=== PATIENT | male | born 1965 | race Caucasian/White ===

== ENCOUNTER 2024-08-11 06:47 | Outpatient (CLI) | payer MEDICAID ==
[~2024-08-11 06:47] MED LIST: GADOTERATE MEGLUMINE 7.5 MMOL/15 ML VIAL IV ONE; LIDOcaine 1% 30ml preserv. free vial ONE; LIDOcaine 1%/PF 5ML 10 MG/ML VIAL ONE; iohexol 300 MG/1 ML 50ml polymer ONE
== END 2024-08-11 23:59 | disposition home or self-care (01) ==
LOC: RAD 06:47
PROVIDERS: ATTEND Physician Assistant
DX: S63.8X2A Sprain of other part of left wrist and hand, initial encounter (principal); M25.532 Pain in left wrist; G56.03 Carpal tunnel syndrome, bilateral upper limbs; M67.432 Ganglion, left wrist; I10 Essential (primary) hypertension; F32.A Depression, unspecified; Z79.891 Long term (current) use of opiate analgesic; Z79.890 Hormone replacement therapy; Z79.899 Other long term (current) drug therapy; Z98.890 Other specified postprocedural states; Z88.8 Allergy status to other drugs, medicaments and biological substances; Z82.3 Family history of stroke; Z82.49 Family history of ischemic heart disease and other diseases of the circulatory system; Z83.3 Family history of diabetes mellitus; X58.XXXA Exposure to other specified factors, initial encounter; Y93.89 Activity, other specified; Y92.89 Other specified places as the place of occurrence of the external cause; Y99.8 Other external cause status
CPT/HCPCS: 25246; 73222; 77002; A9575; J2003; J3490; Q9967; 73115